=== PATIENT | female | born 1950 | race Caucasian/White ===

== ENCOUNTER 2024-07-17 13:08 | Outpatient (AMB) | payer MEDICARE, SELFPAY ==
--- OUTSIDE RECORDS SUMMARY | 2024-07-17 13:29 | XMS_ITS | Data Portability ---
Author Organization [facility], [facility] Address [address] [place] [address] Care Team Providers Care Ticket Speculator Name Role Phone ANNELISE BONNER Primary Care Provider [phone] Assessment Encounter Date Assessment Date Assessment LastModified by Organization Details LastModified Time 12/05/2023 12/05/2023 Chief complaint: Right knee pain. History of present illness: The patient is a 73-year-old female presenting with a chief complaint of right knee pain. She has had pain for 3-1/2 months. The patient currently has 8 out of 10 pain. Currently the patient uses no assistive devices when walking. The patient has tried rest, NSAIDS, exercise, and activity modification but continues to have pain. Past medical history: Past medical history reviewed from the patient's intake sheet. Pertinent positives: COPD Past surgical history: Past surgical history reviewed from the patient's intake sheet. Pertinent positives: none Allergies: Allergies reviewed from the patient's intake sheet. Pertinent positives: none Medications: Medications reviewed from the patient's intake sheet. Pertinent positives: none Social history: Social history reviewed from the patient's intake sheet. Pertinent positives: none Physical Examination: The patient is in no acute distress. She is alert and oriented x3. She has nonlabored breathing. Her hearing is intact to spoken word. Her extra-ocular motion is intact. Her BMI is 28.3. Right lower extremity - Alignment: neutral Effusion: mild Knee range of motion: 0-130 Varus/valgus stress testing: stable Crepitus: slight Skin is intact without erythema, induration, or ecchymosis. The patient has full painless range of motion at the ipsilateral hip. Sensation is intact to light touch over the dorsum of the foot, in the first webspace, and over the plantar aspect of the foot. The patient has 5/5 strength with plantarflexion of the ankle, dorsiflexion of the ankle, plantarflexion of the great toe, and dorsiflexion of the great toe. The foot is warm and well-perfused with brisk capillary refill. There is a 2+ dorsalis pedis pulse. Radiographs: 4 views of the right knee including bilateral knee AP, bilateral knee Klein, right knee lateral, and bilateral knee merchant views were obtained and evaluated in the office today. X-rays demonstrate that the patient has preserved joint space in the right knee. There is no evidence of fracture. Injection: The patient was given a corticosteroid injection in the office today for treatment of right knee pain. Risks of the injection, including but not limited to infection were discussed. Despite the risks, the patient wished to proceed. The patient had an injection containing 4 cc of 1% lidocaine and 1 cc of Kenalog injected into the right knee via an anterolateral approach under sterile technique. The patient tolerated this injection well. There were no complications. Following the injection the patient noted a decrease in pain. The patient was instructed to contact the office if the patient had any reaction at the injection site or any concerns. The patient was also instructed to keep track of how much pain relief the injection provided and how long the injection was effective. Assessment and plan: The patient is a 73-year-old female presenting with a chief complaint of right knee pain. She demonstrates preserved joint space of the right knee on her radiographs. She was given a corticosteroid injection for her right knee pain in the office today. If this has not significantly beneficial, we would consider obtaining an MRI. She can follow up as-needed for her right knee pain. [email or web address] Not available 12/11/2023 07:01:37 Plan of Treatment Reminders Order Date Submit Date Provider Last Modified By Organization Details Last Modified Time Details Appointments None record ed. Lab None record ed. Referral None record ed. Procedures None record ed. Surgeries None record ed. Imaging XR, knee, 4 or more view - 204 rt 4v 024 12/05/19 24 [email or web address] [facility], [address], [facility] [address], [place], [address], 4 15:39:04 Medication Orders None record ed. Patient TargetsNo targets recorded. Patient InstructionsNo instructions recorded. Reason for Referral None Reported. Results Created Date Observation Date Name Description Value Unit Range Abnormal Flag Note LastModifiedBy Organization Detail LastModifiedTime 10/13/19 24 01/18/2020 imagi ng/di agnos tic resul t No observ ation record ed. [email or web address] Not Available 09/15 03:58:34 10/13/19 24 08/21/2021 imagi ng/di agnos tic resul t No observ ation record ed. [email or web address] Not Available 09/15 03:59:57 10/13/19 24 08/25/2022 imagi ng/di agnos tic resul t No observ ation record ed. [email or web address] Not Available 09/15 04:00:45 12/05/19 24 12/05/2023 XR, knee, 4 or more view [email or web address] ?Encry pted=s hAaTro YD8dLq bEUv6g %2BXZw aYqtaq 0bqfl% 2Fg9IQ a4ajBk vP9nXo QUaueC m3YtLR FvZlgJ JJ8mAn HZtai3 0z9410 AC0Kqa 3SCVKO hKiQtr MwF INTERFACE [facility] [address], [place], [address], 12/05/2023 14:39:27 12/05/19 24 12/05/2023 XR, knee, 4 or more view [email or web address] ?Encry pted=s hAaTro YD8dLq bEUv6g %2BXZw aYqtaq 0bqfl% 2Fg9IQ a4ajBk vP9nXo QUaueC m3YtLR FvZlgJ JJ8mAn HZtai3 2c2623 AC0Kqa 3SCVKO hKiQtr MwF INTERFACE [facility] [address], [place], [address], 12/05/2023 14:39:29 01/14/20 24 01/12/2024 MRI, knee, w/o contr ast No observ ation record ed. christiano [facility] [address] [address], [place], [address], 01/15/2024 06:39:09 01/14/20 24 01/12/2024 MRI, knee, w/o contr ast No observ ation record ed. coty [facility] [address] [facility] [address], [place], [address], 01/16/2024 11:35:52 Result Notes None recorded. Problems Name Problem SNOMED Code Status Onset Date Resolution Date Notes Provider Name and Address Organization Details Recorded Time Pain of right knee joint 872144854923 100 Active 2023 eloy serrano [facility] 4 14:09:12 Osteoarth ritis of right knee joint 897172044447 100 Active 2024 Fior Walter PA-C [address], [place], [address] , [facility] 5 14:10:27 Acute meniscal tear, medial 427969296 Active 2024 Fior Walter PA-C [address], [place], [address] , [facility] 5 14:10:27 Sprain of shoulder rotator cuff 391652764773 Active 2017 Problem Code: S43.421A ; Problem Code Type: ICD-10; Status: 'A'; Not Available [facility] 4 11:27:12 Problem Notes None recorded. Procedures Surgical History Date Name Laterality Status Provider Name and Address Organization Details Recorded Time 5 Sports Knee 4&1 completed Fior Walter PA-C [address], [place], [address], [facility] 06/18/2024 14:10:32 5 Sports Knee 4&1 completed Fior Walter PA-C [address], [place], [address], [facility] 03/19/2024 14:26:56 4 Sports Knee 4&1 completed Evangelista Lou MD [address], [place], [address], [facility] 12/11/2023 07:00:02 4 Sports Shoulder completed Antonette Aquino MD [address], [place], [address], [facility] 05/22/2023 08:51:02 2 repair of rotator cuff by suture completed ROSE GARCÍA [facility] 05/11/2023 11:44:39 Imaging Results None recorded. Procedure Notes None recorded. Medical Equipment None Reported. Allergies Allergen ID Allergen Name Allergen Category Reaction Reaction Severity Criticality Documentation Date Start Date Code Code System Note Provider Name and Address Organization Details Recorded Time 32095 codeine medicatio n vomiting Not available Not available 04/17/20232020 2670 RxNorm Not Available [facility] 14:03:25 Medications Name Sig Start Date Stop Date Status Note LastModified by Organization Details LastModified Time atorvastati n 20 mg tablet TAKE 1 TABLET BY MOUTH EVERY DAY active Not Available Not Available No t Available citalopram 40 mg tablet TAKE 1 TABLET BY MOUTH EVERY DAY active Not Available Not Available No t Available ibuprofen 200 mg capsule Take 1 capsule every 6 hours by oral route. active Not Available Not Available No t Available fluocinonid e 0.05 % topical ointment APPLY TO THE AFFECTED AREAS ON THE ARM TWICE DAILY FOR 2 WEEKS, BREAK 1 WEEK USE VASELINE, REPEAT active Not Available Not Available No t Available amoxicillin 500 mg tablet TAKE 2 TO START AND THEN TAKE 1 TABLET EVERY 8 HOURS 12/04 completed Not Available Not Available Not Available citalopram 20 mg tablet Take 1 tablet every day by oral route. active Not Available Not Available No t Available amlodipine 10 mg tablet TAKE 1 TABLET BY MOUTH EVERY DAY active Not Available Not Available No t Available econazole nitrate 1 % topical cream APPLY TO AFFECTED AREAS ON THE FEET TWICE DAILY UNTIL IMPROVED, THEN ONCE WEEKLY FOR SCARLETT VILLALTA. active Not Available Not Available No t Available omeprazole 20 mg capsule,del ayed release TAKE 1 CAPSULE BY MOUTH TWICE A DAY active Not Available Not Available No t Available lorazepam 1 mg tablet TAKE 1 TABLET BY MOUTH 2 TIMES A DAY,INSTR :DX: NECK PAIN/HEAD ACHE active Not Available Not Available No t Available estradiol 0.01% (0.1 mg/gram) vaginal cream APPLY ONE GRAM VAGINALLY TWICE/WEE K active Not Available Not Available No t Available Zyrtec 10 mg capsule Take by oral route. active Not Available Not Available No t Available Vitals Date Recorded Body height Body mass index (BMI) Body weight Provider Name and Address Organization Details Last Updated DateTime 03/19/2024 165.1 cm 23.3 kg/m2 58634.93 g Asher Cordova [facility] 03/19/2024 13:49:51 Date Recorded Body height Body mass index (BMI) Body weight Provider Name and Address Organization Details Last Updated DateTime 05/22/2023 165.1 cm 21.3 kg/m2 97127.82 g ROSE GARCÍA [facility] 05/22/2023 08:25:28 Date Recorded Body height Body mass index (BMI) Body weight Provider Name and Address Organization Details Last Updated DateTime 06/18/2024 165.1 cm 23.3 kg/m2 86088.93 g Nicola Brunson [facility] 06/18/2024 14:05:46 Date Recorded Body height Body mass index (BMI) Body weight Provider Name and Address Organization Details Last Updated DateTime 12/05/2023 165.1 cm 23.3 kg/m2 03448.93 g KELL MENDEZ [facility] 12/05/2023 14:26:26 Social History None recorded. Functional Status None recorded. Mental Status None recorded. Family History Nothing Reported. Medical History Condition Response Coronary Artery Disease N Anxiety/Depression Y Emphysema N COPD N Pacemaker N Vascular Disease N Heart Trouble N Gastrointestinal Disease N Autoimmune disease N Orthotics N Arthritis Y Blood Clot N Acid Reflux (GERD) N Cancer N Stroke N Circulation Problems N Rheumatoid Arthritis N Arrhythmia N Headaches Y Fibromyalgia N Allergies/Hayfever N Breathing or lung disorders N Nerve Disorders N Thyroid Problems N Kidney/Bladder Problems N Anemia N Heart Attack (TN) N Cholesterol Y Diabetes N Bleeding Disorder N Seizures/Epilepsy N AIDS/HIV N Congestive Heart Failure (CHF) N Asthma N Peripheral Vascular Disease N Sleep Apnea N Hepatitis N Heart Disease N Pulmonary Embolism N Hypertension Y Osteoporosis N Gynecological HistoryNo gynecological history recorded. Obstetrics History GPAL:G 0 P 0 0 0 0 Past Encounters Encounter ID Performer Location Encounter Start Date Encounter Closed Date Diagnosis/Indication Diagnosis SNOMED-CT Code Diagnosis ICD10 Code Diagnosis Note [id number] MD Yogesh [facility] [address] [place] [address] 05/22/2023 08:21:33 06/02/2023 12:22:34 Rupture of rotator cuff of left shoulder 9918893280 7214376 M75.433 [id number] [facility] [address] [place] [address] 12/05/2023 13:56:59 12/26/2023 15:39:04 Pain of right knee joint 7840743907 19817 M25.926 [id number] SCOTT [facility] [address] [place] [address] 03/19/2024 13:31:07 04/01/2024 15:11:18 Osteoarthritis of right knee joint 1902614374 66305 M17.11 Reviewed patient's imaging and exam findings in detail with her. Discussed that her MRI does demonstrat e more osteoarthr itis than her x-rays would suggest. This is superimpos ed on a complex degenerati ve posterior horn medial meniscus tear. Patient is convinced that her previous injection did not get into the joint. Reviewed with her that she is in a gutierrez area where knee arthroscop y would only alleviate her symptoms from the extent that they are coming from her underlying meniscus pathology but would not treat her symptoms as they are related to her arthritis. She also does not have advanced osteoarthr itis which would warrant total joint replacemen t at this juncture. Therefore would recommend repeat attempted intra-prashant cular cortisone injection. We can attempt a medial anterior approach. She will follow-up in 3 months to see how this works for her. Could consider gel injection versus operative referral for arthroscop y versus total joint replacemen t based on how she does. Ultimately we need to try to keep her comfortabl e with symptomati c treatment options in anticipati on of ultimately requiring total joint replacemen t. However she has not yet progressed to bone-on-rhonda ne arthritis and would therefore recommend exhausting conservati ve treatment efforts. She is agreeable to this. Follow-up in 3 months. Acute meni scal tear, medial 367946622 S83.231A [id number] SCOTT Escoto [address] [place] [address] 06/18/2024 13:49:45 07/03/2024 14:57:31 Osteoarthritis of right knee joint 7815889327 80478 M17.11 Nature of the diagnosis discussed with the patient today. They are having an acute exacerbati on of symptoms including pain, swelling and difficulty participat ing in ADL's. Both surgical and nonsurgica l options were reviewed. Conservati ve treatment options including activity modificati on, low impact exercise program such as swimming, stationary biking, swimming or rowing, physical therapy, NSAIDs, and injections were discussed. At this point patient elects to move forward with a repeat cortisone injection. Patient tolerated the procedure well. Post injection precaution s reviewed. They will continue with conservati ve modalities including icing and elevating. Follow-up with us as symptoms dictate for discussion of continued conservati ve management options versus total joint arthroplas ty. We will continue with anterior medial approach for knee injections . This seems to provide her better relief for what ever reason. Did review that her MRI demonstrat es more advanced arthritis than her x-rays would suggest. Discussed that arthroscop y with the extent of arthritis that she has may not make her symptoms better and could make them worse. Therefore reviewed that she would likely be better off having knee replacemen t which she is not yet ready for. Acute meni scal tear, medial 982704667 S83.231A Health Concerns Section Related Observation LastModified by Organization Detai ls LastModified Time None Recorded Concern Status LastModified by Organization Details LastModified Time None Recorded Advance Directives Directive None Recorded Payers Encounter Date Sequence Insurance Name Policy Number Policy Peace Covered Member ID Peace Member ID Guarantor Name 05/22/2023 [facility] Mel Arizmendinois 12/05/2023 1 [employer] MED[employer]ARE ADVANTAGE PLAN (MEDICARE REPLACEMENT HMO) [id number] Mel Luis Smith Harnois [id number] Mel Arizmendinois 03/19/2024 1 [employer] MED[employer]VANTAGE PLAN (MEDICARE REPLACEMENT HMO) [id number] Mel P P Harnois [id number] Mel P Harnois 06/18/2024 1 [employer]AGE PLAN (MEDICARE REPLACEMENT HMO) [id number] Mel P P Harnois [id number] Mel Arizmendinois Notes Date Note Type Note Provider Name and Address Organization Details Recorded Time 05/22/2023 text/html Surgery: Left shoulder 1 anchor subscapularis repair, 1+2 double row supraspinatus repair, JOSEFADCE, 10/06/2021Interval History: The patient returns today in follow-up now approximately 20 months out from surgery as above. She has had a bit of a tough time, with some lingering anterior shoulder pain which has made return to overhead lifting difficult. I had her go for an MRI to evaluate repair integrity, which showed some thinning of tissue, but no obvious recurrent full thickness tears. But continues to struggle with overhead strength and pain with overhead lifting. Still some anterior discomfort in mid-flexion and end-range motion. Occasional crepitus. She was not allowed to return to work with the light duty restrictions provided previously. She has been benefiting from cortisone, getting about 80% relief for close to 3 months. We have discussed revision to a reverse total shoulder as a more definitive means of managing her ongoing pain and dysfunction. An GIULIANO unfortunately brought into question whether her initial injury was work-related and whether any potential future surgery should be covered under her claim. She has had to obtain a director television and is in the process of getting this sorted out. Work has not taken her back with light duty restrictions.Past family, medical, social history and review of systems have been reviewed and updated on the medical history sheet saved to the patient's chart. A 12-point review of systems is negative x12 except as noted above and/or on the medical history sheet.Examination: Pleasant 72-year-old woman in no acute distress. On exam of the left upper extremity, arthroscopic portal incisions are nicely healed. No significant swelling or bruising. No evidence for Bienvenido deformity. Active forward elevation 150, passive 170. Passive ER 75; IR L3. 4+/5 with empty can with pain, 5/5 with ER and IR. Mild pain, no weakness with bear hug maneuver. Pain felt over the biceps muscle belly with all motions, but negative Yergason's. Sensation intact in axillary and LABC distributions. Fires EPL, FPL and intrinsics. Hand is warm and well perfused.Imaginv of the left shoulder ordered and obtained at [facility] 10/25/2021 were reviewed during the visit. These demonstrate improved appearance of the anterior acromial spur on outlet view. Evidence of distal clavicle excision noted on AP view.Left shoulder MRI performed [facility] 08/25/2022 independently reviewed by me on outside disc, will be uploaded to [facility] for future reference as needed. On coronal sequences, cuff repair appears to be healing appropriately. Some thinning of tissue toward the anterior footprint, but no areas of concern for high-grade partial-thickness or full-thickness tear. Still quite a bit of edema within the humeral head/tuberosity adjacent to the anchors. No signs of loose or displaced hardware, however. On axial sequences, there is tissue stretching to the lesser tuberosity throughout, however it is quite thin in places. Volume loss affecting the upper half of the subscapularis muscle belly, without fatty infiltration. Type I acromion. Again evidence of long head biceps tendon rupture. Mild degenerative changes to glenohumeral articular cartilage surfaces, fairly focal. No residual edema within the a.c. joint. Evidence of distal clavicle excision.Impression : 72-year-old right-hand dominant Rexly, now approximately 20 months out from surgery as above. Mechanics, motion and strength all continue to improve, but still having some pain and weakness with overhead lifting. MRI raises concern for incomplete healing of subscapularis, which would explain her residual complaints.Plan: Findings and options for management were reviewed with the patient. 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 To me, her MRI raises concern as to healing of her rotator cuff repair. The tissue present is intact, but very thin, and I question how functional this is. Given that we found that her tissues were not great during initial surgery, I would be leary to go in and attempt the same repair again. As such, discussed that reverse total shoulder arthroplasty would be a more definitive solution to recurrent tear/incomplete healing. The GIULIANO doctor points out that the MRI report indicates her cuff repair is intact. We could always do a diagnostic arthroscopy to definitively answer the question of cuff integrity if need be. But again all of this ties to her initial injury and outcome of her surgery for her work-related injury.After much thought, the patient is interested in pursuing definitive revision surgical management to address her ongoing pain, but we anticipate there will be some delays as her director television tries to get causality sorted out. For today will go forward with another cortisone injection. I will see her in another 3 months. She will continue with current light duty restrictions in the interim.[employer] speech recognition case aide software was used to create portions of this document. An attempt at proofreading has been made to minimize errors. Please call for corrections. Antonette Aquino MD [address] [place] [address] [address] [facility], [place], [address], [facility] 05/22/2023 08:52:27 03/19/2024 text/html I am seeing the patient under the general supervision of Dr. Saeed who was available but who did not see the patient. HPI:Patient is a 73 year old female who presents today for follow-up and MRI review of the right knee. She last saw Dr. Salmon in November 2023 where she received cortisone injection. She has overall well-preserved joint spaces on her radiographs and was provided a cortisone injection which did not provide much relief. Therefore MRI was obtained which does demonstrate more advanced arthritis than her radiographs would suggest. She also has complex degenerative medial meniscus tearing. DIAGNOSTIC IMAGING:MRI obtained by outside imaging facility was independently reviewed during today's interview and examination and demonstrates degenerative complex posterior medial meniscus tear with superimposed moderate to advanced chondral thinning with areas of full-thickness cartilage loss in the medial tibiofemoral compartment. Arthritis appears more progressed on the MRI than it does on her radiographs. Fior Walter PA-C [address], [place], [address], [facility] 03/19/2024 14:29:25 06/18/2024 text/html I am seeing the patient under the general supervision of Dr. Saeed who was available but who did not see the patient. HPI:Patient is a 73 year old female who presents today for follow-up and MRI review of the right knee. She last saw Dr. Salmon in November 2023 where she received cortisone injection. She has overall well-preserved joint spaces on her radiographs and was provided a cortisone injection which did not provide much relief. Therefore MRI was obtained which does demonstrate more advanced arthritis than her radiographs would suggest. She also has complex degenerative medial meniscus tearing. We attempted an anterior medial approach for her injection last time which seemed to work better and provided her about 2 months of relief. Requests repeat injection today. Fior Walter PA-C [address], [place], [id number], [facility] 06/18/2024 14:25:18 OBGyn Episode No OBEpisode recorded.
--- NOTE | 2024-07-17 13:30 | AM.OFFWIN_ITS ---
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 - The laceration on the left knee result ed from a fall 10 days ago, initially bleeding due to an adhesive patch. It has gotten smaller in size no severe warmth or pain was noted. She denies any thick yellow discharge, fevers, tenderness. She has been applying antibiotic ointment and a bandaid daily. - The right ankle was sprained in the sa me incident, with tenderness in the front of her ankle, can move foot and ankle fully, and some bruising where the brace was applied. - Notably, the patient is neither diabet ic nor on blood thinners and denies head trauma or consciousness issues at the time of injury. Physical Exam General: Cooperative, healthy appearing, comfortable, no acute distress and well developed Orientation: Patient oriented x3 Limitations: No limitations Head: Normal to inspection Ears: Hearing grossly normal bilaterally Nose: Normal External nose present Face and sinus: Normal facial exam Eyes: Appearance normal, both eyes and all related structures Neck: Normal visual inspection and Yes full ROM Respiratory: Normal respiratory effort and able to speak in complete sentences. Skin: ecchymosis inferior left knee, with some serosanguineous fluid and yellow granulation tissue on 1cm round abrasion Neuro: Patient oriented x3 Extremities: Right ankle TTP anterior to lateral malleolus with slight edema, no ttp posterior lateral or medial malleolus, no ttp midfoot or toes, full ROM in right ankle, full ROM toes, all toes NVI Review of Systems Const All systems reviewed & are unremarkable except as noted in HPI and below Physical Exam Vital Signs: Last Vital Signs Temp 98.4 F 07/17/24 13:31 Pulse 76 07/17/24 13:31 Resp 16 07/17/24 13:31 BP 110/70 07/17/24 13:31 Pulse Ox 95 07/17/24 13:31 Oxygen Delivery Method Room Air 07/17/24 13:31 BMI result Body Mass Index 24.0 Assessment & Plan Assessment & Plan (1) Mild sprain of right ankle: Code(s): S93.401A - Sprain of unspecified ligament of right ankle, initial encounter Qualifiers: Encounter type: initial encounter Qualified Code(s): S93.401A - Sprain of unspecified ligament of right ankle, initial encounter Plan: Plan - No indiation for ankle XR as per [place] ankle rules - Continue wound care for the left knee laceration, using a triple antibiotic ointment and monitoring for signs of infection. - Use an Jose wrap for the right ankle sprain for support and reduction of swelling; apply ice, use NSAIDS and rest as needed. - Educate the patient on signs of complications, ensuring an understanding of when to seek further medical evaluation. - Suggest proper use of an Jose wrap to prevent circulatory issues. - Advise to consider pain relief medication for discomfort, understanding the potential for prolonged recovery in sprains. Patient was informed and verbally consented to the use of an ambient scribe for clinic note documentation during this visit. (2) Abrasion, left knee, initial encounter: Code(s): S80.212A - Abrasion, left knee, initial encounter Plan: as above Coding Level of Care Code New Pt Level 3 (45277) Diagnoses Mild sprain of right ankle, initial encounter S93.401A Encounter type: initial encounter Abrasion, left knee, initial encounter S80.212A
[2024-07-17 13:31] VITALS: BP 110/70; PULSE 76; RESP 16; TEMP 36.9; O2SAT 95; BMI 24.0
== END 2024-07-17 14:31 | disposition home or self-care (01) ==
PROVIDERS: Visit Provider Physician Assistant
DX: S93.401A Sprain of unspecified ligament of right ankle, initial encounter (principal); S80.212A Abrasion, left knee, initial encounter

== ENCOUNTER → 2024-07-17 13:08 | Outpatient (BNVA) | payer MEDICARE, OTHER, SELFPAY | PROVIDERS: Visit Provider Physician Assistant | DX: S81.012A Laceration without foreign body, left knee, initial encounter (principal); S93.401A Sprain of unspecified ligament of right ankle, initial encounter; W19.XXXA Unspecified fall, initial encounter; Y93.9 Activity, unspecified; Y92.9 Unspecified place or not applicable; Y99.9 Unspecified external cause status | CPT/HCPCS: 99202 ==